=== PATIENT | female | born 2000 | race Caucasian/White ===

== ENCOUNTER 2023-12-18 13:54 | Emergency (ER) | payer SELFPAY ==
[~2023-12-18] VITALS: Ht 154.9 cm; Wt 62.0 kg
[2023-12-18 14:08] VITALS: O2SAT 98
[2023-12-18 14:40] LABS: BASOPHILS % 0.4 % (0.0-2.0); EOSINOPHILS % 1.7 % (0.0-5.0); LYMPHOCYTES % 26.6 % (20.0-50.0); MEAN CORPUSCULAR HEMOGLOBIN 27.8 pg (28.0-32.0); MEAN CORPUSCULAR HGB CONC 33.3 g/dL (31.0-37.0); MEAN CORPUSCULAR VOLUME 83.5 fL (81.0-99.0); MEAN PLATELET VOLUME 8.3 fl (7.4-10.4); MONOCYTES % 5.4 % (2.0-8.0); NEUTROPHILS % 65.9 % (40.0-76.0); PLATELET 358 x1000/uL (130-400); RED CELL DISTRIBUTION WIDTH 15.3 % (11.6-14.6)
[2023-12-18 14:48] LABS: CHLORIDE 105 mEq/L (98-107); POTASSIUM 3.3 mEq/L (3.5-5.1); SODIUM 137 mEq/L (136-145)
[2023-12-18 14:49] LABS: CALCIUM 8.4 mg/dL (8.7-10.4); CARBON DIOXIDE 22 mEq/L (21-32)
[2023-12-18 14:54] LABS: CREATININE 0.5 mg/dL (0.6-1.0); GLUCOSE 89 mg/dL (70-105); UREA NITROGEN BLOOD 9 mg/dL (9-23)
[2023-12-18 16:01] VITALS: BP 97/50; PULSE 87; RESP 16; TEMP 98.1
== END 2023-12-18 16:05 | disposition short-term general hospital (02) ==
LOC: ER 14:32
DX: O26.893 Other specified pregnancy related conditions, third trimester (principal); Z3A.28 28 weeks gestation of pregnancy
CPT/HCPCS: 36415; 76815; 80048; 85025; 86705; 86850; 86900; 99285